=== PATIENT | female | born 1985 | race Caucasian/White ===

== ENCOUNTER 2023-07-07 16:34 | Emergency (ER) | payer OTHER ==
[~2023-07-07] VITALS: Ht 157.5 cm; Wt 72.6 kg
[2023-07-07 16:41] VITALS: BP 157/86; PULSE 101; RESP 18; TEMP 97.5; O2SAT 98
[2023-07-07 17:31] VITALS: BP 157/86; PULSE 101; RESP 18; TEMP 97.5; O2SAT 98
[2023-07-07] MEDS: LIDOCAINE 5% 1 EA PATCH TP ONE (17:58)
[2023-07-07] MEDS: CYCLOBENZAPRINE 10 MG TAB PO ONE (17:58)
[2023-07-07] MEDS: KETOROLAC 30 MG/ML VIAL IM ONE (18:01)
[2023-07-07] MEDS ORDERED: IBUP-2213 PO (19:52)
[2023-07-07] MEDS ORDERED: LID5T TP (19:52)
[2023-07-07] MEDS ORDERED: CYCL-711 PO (19:52)
== END 2023-07-07 20:06 | disposition home or self-care (01) ==
LOC: MED 16:34
DX: M51.26 Other intervertebral disc displacement, lumbar region (principal); Z79.899 Other long term (current) drug therapy
CPT/HCPCS: 72131; 81025; 96372; 99285; J1885